=== PATIENT | male | born 1955 | race Caucasian/White ===

== ENCOUNTER 2020-06-09 01:38 | Emergency (ER) | payer MEDICAID ==
[~2020-06-09] VITALS: Ht 172.7 cm; Wt 68.0 kg
[2020-06-09 01:42] VITALS: BP 197/101
[2020-06-09 02:22] LABS: BASOPHILS % (AUTO) 1 % (0-1); EOSINOPHILS % (AUTO) 3 % (1-7); LYMPHOCYTES % (AUTO) 36 % (22-44); MEAN CORPUSCULAR HEMOGLOBIN 33.4 pg (27.5-34.5); MEAN CORPUSCULAR HGB CONC 33.8 g/dL (33.2-36.2); MEAN PLATELET VOLUME 7.1 fL (7.4-10.4); MONOCYTES % (AUTO) 8 % (2-9); NEUTROPHILS % (AUTO) 52 % (42-75); PLATELET COUNT 194 x10^3/uL (130-400); RED BLOOD COUNT 4.37 x10^6/uL (4.38-5.82); RED CELL DISTRIBUTION WIDTH 14.1 % (9.4-14.8)
[2020-06-09 02:24] LABS: MD NO
== END 2020-06-09 03:05 | disposition home or self-care (01) ==
LOC: ED 02:59
DX: Z00.00 Encounter for general adult medical examination without abnormal findings (principal)
CPT/HCPCS: 36415; 85025; 99283